=== PATIENT | male | born 1980 | race Caucasian/White ===

== ENCOUNTER 2019-08-22 01:32 | Observation (INO) ==
[2019-08-22] MEDS ORDERED: ONDANSETRON INJ 2 MG/ML 2 ML VIAL IV STA (02:01)
[2019-08-22] MEDS ORDERED: SODIUM CHLORIDE 0.9% 500 ML IV STA (02:01)
[2019-08-22 02:19] LABS: Basophils # (auto) 0.02 K/uL (0-0.2); Basophils % (auto) 0.2 %; Eosinophils # (auto) 0.04 K/uL (0-0.5); Eosinophils % (auto) 0.3 %; Hematocrit (blood only) 42.4 % (42-52); Hemoglobin 15.2 g/dL (14.0-18.0); Immature Granulocytes # (auto) 0.04 K/uL (0.00-0.02); Immature Granulocytes % (auto) 0.3 %; Lymphocytes # (auto) 2.13 K/uL (1.2-3.4); Lymphocytes % (auto) 17.3 %; Mean Corpuscular Hemoglobin 29.6 pg (25-34); Mean Corpuscular Hgb Conc 35.8 g/dL (32-36); Mean Corpuscular Volume 82.5 fL (80-100); Mean Platelet Volume 10.4 fL (7.4-10.4); Monocytes # (auto) 1.07 K/uL (0.11-0.59); Monocytes % (auto) 8.7 %; Neutrophils # (auto) 8.98 K/uL (1.4-6.5); Neutrophils % (auto) 73.2 %; Platelet Count 235 K/uL (130-400); RDW Coefficient of Variation 12.6 % (11.5-14.5); RDW Standard Deviation 37.9 fL (36.4-46.3); Red Blood Count 5.14 M/uL (4.7-6.1); White Blood Count 12.28 K/uL (4.8-10.8)
[2019-08-22] MEDS ORDERED: MoRPHine SULFATE 4 MG/ML 1 ML CARP\\VIAL IV STA (02:25)
[2019-08-22 02:27] LABS: Alanine Aminotransferase 34 U/L (12-78); Albumin Level 3.8 gm/dl (3.4-5.0); Aspartate Aminotransferase 19 U/L (15-37); BUN Creatinine Ratio 16.4 (10-20); Blood Urea Nitrogen 13 mg/dl (7-18); Calcium 9.1 mg/dl (8.5-10.1); Carbon Dioxide 27 mmol/L (21-32); Chloride 101 mmol/L (98-107); Creatinine Clr Calc Pharmacy 127.4 ml/min; Est GFR (African American) 130.9; Glucose 132 mg/dl (70-99); Lipase 93 U/L (73-393); Sodium 139 mmol/L (136-145)
[2019-08-22] MEDS ORDERED: POTASSIUM ACETATE 10 MEQ in 0.9 % SODIUM CHLORIDE 100 ML IV ONE (02:29)
[2019-08-22 02:30] LABS: Albumin Globulin Ratio 0.9 (0.9-2); Alkaline Phosphatase 101 U/L (45-117); Bilirubin,Total 0.3 mg/dl (0.2-1); Globulin 4.4 gm/dl (2.5-4.0); Total Protein 8.2 gm/dl (6.4-8.2)
[2019-08-22] MEDS ORDERED: SODIUM CHLORIDE 0.9% 1000ML 1,000 ML IV SCH (02:30)
[2019-08-22] MEDS ORDERED: POTASSIUM CHLORIDE / WTR 10 MEQ/100 ML PLCT IV ONE (02:44)
[2019-08-22 02:51] LABS: Troponin I < 0.015 ng/ml (0-0.045)
[2019-08-22 03:04] LABS: T4 Free Thyroxine 1.12 ng/dl (0.8-1.6)
[2019-08-22 03:14] LABS: Appearance Urine Clear (Clear); Bilirubin Urine Negative (Negative); Blood Urine Negative (Negative); Color Urine Yellow; Glucose Urine UA Negative (Negative); Ketones Urine 2+ (Negative); Leukocyte Esterase Urine Negative (Negative); Nitrite Urine Negative (Negative); Protein Urine Negative (Negative); Specific Gravity Urine 1.023 (1.000-1.030); Urobilinogen Urine Negative (Negative); pH Urine 5.5 (4.5-7.5)
[2019-08-22 03:23] LABS: Lyme Ab IgG w/WB Rflx Negative (Negative); Lyme Ab IgM w/WB Rflx Negative (Negative)
[2019-08-22] MEDS ORDERED: cefOXitin 1,000 MG/50 ML BAG IV STA (05:29)
--- NOTE | 2019-08-22 05:33 | Emergency Department Note ---
History of Present Illness General Chief complaint: Abdominal Pain Stated complaint: ABDOMINAL PAIN Time Seen by Provider: 08/22/19 02:05 History of Present Illness Maximum Pain Intensity: 7 This is a 39-year-old male presenting to the emergency department for evaluation of upper abdominal pain that began this evening. The patient's discomfort began shortly after eating a large meal tonight. He initially had pain that was rated a 10/10, but now it is rated a 7/10. The patient considers himself usually healthy and does not regularly follow with a doctor. He does have a past histo ry of appendectomy. He does not take medication on a regular basis. His last meal was around 10 PM. No fevers or chills. No chest pain, chest tightness, or shortness of breath. Home Medications Home Medications Medication Instructions Recorded Confirmed Type No Known Home Medications 08/22/19 08/22/19 History Allergies Allergy/AdvReac Type Severity Reaction Status Date / Time amoxicillin Allergy Rash Verified 08/22/19 14:02 Past Med/Surg History Medical History Hypokalemia No chronic diseases present Surgical History History of appendectomy Family History Other No known health problems Social History Preferred Language: Somali Communication Ability: Effective Back Filler Operator Required: No Beliefs That Will Affect Care: None Current Living Situation: Family Other Information That Helps Us Care for You: No Feels Safe at Home: Yes Safety Concerns: Feels Safe At This Time Smoking Status: Never smoker Hx Alcohol Use: No Hx Substance Use: No Review of Systems A total of 10 systems reviewed and were otherwise negative Physical Exam Vital Signs Vital Signs - 24 hr 08/22/19 01:39 08/22/19 01:43 08/22/19 02:00 Temperature 37.0 C Temperature Source Oral Sepsis Recent Fever Within 48 Hours No Sepsis New/Unexplained Change in Mental Status No Sepsis Action Taken by Nursing No Action Required Pulse Rate 52 L 52 L 55 L Pulse Rate from SpO2 Sensor 52 L 54 L Pulse Rhythm Regular Pulse Strength Normal Respiratory Rate 20 20 22 Respiratory Effort / Characteristics Non-Labored Respiratory Depth Normal Blood Pressure 138/90 138/90 124/75 Blood Pressure Mean 106 106 91 Pulse Oximetry 99 96 98 Oxygen Delivery Method Room Air Room Air Room Air 08/22/19 02:30 10/09/19 03:30 08/22/19 04:20 Temperature Temperature Source Sepsis Recent Fever Within 48 Hours Sepsis New/Unexplained Change in Mental Status Sepsis Action Taken by Nursing Pulse Rate 50 L 65 58 L Pulse Rate from SpO2 Sensor 50 L 65 59 L Pulse Rhythm Pulse Strength Respiratory Rate 14 17 21 Respiratory Effort / Characteristics Respiratory Depth Blood Pressure 136/77 128/77 125/73 Blood Pressure Mean 96 94 90 Pulse Oximetry 100 97 97 Oxygen Delivery Method Room Air Room Air 08/22/19 04:30 08/22/19 05:00 08/22/19 05:30 Temperature Temperature Source Sepsis Recent Fever Within 48 Hours Sepsis New/Unexplained Change in Mental Status Sepsis Action Taken by Nursing Pulse Rate 63 66 63 Pulse Rate from SpO2 Sensor 63 66 61 Pulse Rhythm Pulse Strength Respiratory Rate 19 19 21 Respiratory Effort / Characteristics Respiratory Depth Blood Pressure 120/78 118/70 111/67 Blood Pressure Mean 92 86 81 Pulse Oximetry 97 97 98 Oxygen Delivery Method Room Air Room Air Room Air 08/22/19 06:00 08/22/19 06:30 Temperature Temperature Source Sepsis Recent Fever Within 48 Hours Sepsis New/Unexplained Change in Mental Status Sepsis Action Taken by Nursing Pulse Rate 68 74 Pulse Rate from SpO2 Sensor 67 73 Pulse Rhythm Pulse Strength Respiratory Rate 19 15 Respiratory Effort / Characteristics Respiratory Depth Blood Pressure 118/66 122/71 Blood Pressure Mean 83 88 Pulse Oximetry 98 96 Oxygen Delivery Method Room Air Room Air VITALS: Vitals are noted on the nurse's note and reviewed by myself. Vital signs stable. GENERAL: Well-developed, well-nourished, white male who appears in mild to moderate discomfort. He is cooperative with the exam. HEART: Regular rate and rhythm without murmurs gallops or rubs. LUNGS: Clear to auscultation bilaterally without wheezes, rales or rhonchi. No retractions or accessory muscle use. ABDOMEN: Positive normal bowel sounds x 4. Soft with epigastric and right upper quadrant tenderness. The patient does guard in this area. Lesser tenderness is appreciated in the right lower quadrant. No CVA tenderness. MUSCULOSKELETAL: No muscle atrophy, erythema, or edema noted. Full range of motion in all extremities. NEURO: Patient was alert and oriented to person place and time. CN II through XII grossly intact. SKIN: The skin was without rashes, erythema, edema, or bruising. Capillary refill less than 2 seconds. Course Administered Medications Dextrose/Sodium Chloride (D5w And Nss) 1,000 mls @ 125 mls/hr IV .Q8H KENRICK Stop: 09/21/19 09:16 Last Admin: 08/23/19 00:00 Dose: 125 mls/hr Documented by: [id number] Infusion: 08/22/19 17:30 Dose: 0 mls/hr Documented by: [id number] Infusion: 08/22/19 13:52 Dose: 0 mls/hr Documented by: [id number] Infusion: 08/22/19 11:41 Dose: 125 mls/hr Documented by: [id number] Cosigned by: [id number] Infusion: 08/22/19 10:33 Dose: 0 mls/hr Documented by: [id number] Cosigned by: [id number] Admin: 08/22/19 09:43 Dose: 125 mls/hr Documented by: [id number] Ciprofloxacin (Cipro) 400 mg in 200 mls @ 100 mls/hr IV Q12H KENRICK; Protocol Stop: 09/01/19 09:59 Last Infusion: 08/22/19 23:23 Dose: 0 mls/hr Documented by: [id number] Admin: 08/22/19 21:23 Dose: 100 mls/hr Documented by: [id number] Infusion: 08/22/19 12:44 Dose: 0 mls/hr Documented by: [id number] Cosigned by: [id number] Admin: 08/22/19 10:28 Dose: 100 mls/hr Documented by: [id number] Cosigned by: [id number] Metronidazole (Flagyl) 500 mg in 100 mls @ 100 mls/hr IV Q8H K[facility]RICK Stop: 09/01/19 09:59 Last Infusion: 08/22/19 20:42 Dose: 0 mls/hr Documented by: [id number] Admin: 08/22/19 19:25 Dose: 100 mls/hr Documented by: [id number] Infusion: 08/22/19 11:37 Dose: 0 mls/hr Documented by: [id number] Admin: 08/22/19 10:29 Dose: 100 mls/hr Documented by: [id number] Cosigned by: [id number] Oxycodone/Acetaminophen (Percocet 5mg/325mg) 1 tab PO Q4H PRN PRN Reason: Pain Stop: 09/05/19 16:45 Last Admin: 08/22/19 23:55 Dose: 1 tab Documented by: [id number] Discontinued Medications Bupivacaine HCl (Marcaine 0.5% Mpf) Confirm Administered Dose 30 ml .ROUTE .STK- MED ONE Stop: 08/22/19 13:55 Last Admin: 08/22/19 15:31 Dose: 30 ml Documented by: [id number] Cefazolin Sodium (Ancef) Confirm Administered Dose 1,000 mg .ROUTE .STK-MED ONE Stop: 08/22/19 13:56 Last Admin: 08/22/19 15:30 Dose: Not Given Documented by: [id number] Heparin Sodium (Porcine) (Heparin Iv Bolus (Utility Helicopter Repairer Use Only)) Confirm Administered Dose 10,000 units .ROUTE .STK-MED ONE Stop: 08/22/19 13:55 Last Admin: 08/22/19 15:29 Dose: 5,000 units Documented by: [id number] Sodium Chloride (Nss) 500 mls @ 999 mls/hr IV .Q31M STA Stop: 08/22/19 02:31 Last Infusion: 08/22/19 02:36 Dose: 0 mls/hr Documented by: [id number] Admin: 08/22/19 02:05 Dose: 999 mls/hr Documented by: [id number] Sodium Chloride (Nss 1000ml) 1,000 mls @ 999 mls/hr IV .Q1H1M K[facility]RICK Stop: 08/22/19 03:30 Last Infusion: 08/22/19 04:03 Dose: 0 mls/hr Documented by: [id number] Admin: 08/22/19 02:57 Dose: 999 mls/hr Documented by: [id number] Potassium Acetate 10 meq/ (Sodium Chloride) 105 mls @ 105 mls/hr IV Q1H ONE Stop: 08/22/19 03:28 Last Admin: 08/22/19 03:04 Dose: Not Given Documented by: [id number] Potassium Chloride (K Rich / Wtr) 10 meq in 100 mls @ 100 mls/hr IV ONE ONE Stop: 08/22/19 03:43 Last Infusion: 08/22/19 04:03 Dose: 0 mls/hr Documented by: [id number] Admin: 08/22/19 02:56 Dose: 100 mls/hr Documented by: [id number] Cefoxitin Sodium (Mefoxin) 1,000 mg in 50 mls @ 100 mls/hr IV NOW STA Stop: 08/22/19 05:58 Last Infusion: 08/22/19 06:11 Dose: 0 mls/hr Documented by: [id number] Admin: 08/22/19 05:40 Dose: 100 mls/hr Documented by: [id number] Lactated Ringer's (Lr) 1,000 mls @ 15 mls/hr IV .Q24H [facility] Stop: 09/21/19 14:44 Last Admin: 08/22/19 17:00 Dose: Not Given Documented by: [id number] Iothalamate Meglumine (Conray 60%) Confirm Administered Dose 50 ml .ROUTE .STK- MED ONE Stop: 08/22/19 13:55 Last Admin: 08/22/19 15:28 Dose: Not Given Documented by: [id number] Morphine Sulfate (Morphine Sulfate) 4 mg IV NOW STA Stop: 08/22/19 02:26 Last Admin: 08/22/19 02:56 Dose: 4 mg Documented by: [id number] Ondansetron HCl (Zofran) 4 mg IV NOW STA Stop: 08/22/19 02:02 Last Admin: 08/22/19 02:05 Dose: 4 mg Documented by: [id number] Potassium Chloride (Klor-Con M20) 60 meq PO NOW STA Stop: 08/22/19 06:46 Last Admin: 08/22/19 07:07 Dose: 60 meq Documented by: [id number] Medical Decision Making Differential Diagnosis Differential diagnosis: Etiologies such as biliary colic, cholecystitis, hepatitis, pancreatitis, cardiac disease, pancreatitis, gastritis, peptic ulcer disease, appendicitis, cystitis, diverticulitis, mesenteric ischemia, inflammatory bowel disease, ileus, bowel obstruction, testicular/adnexal torsion, aortic pathology, shingles, as well as others were considered Laboratory Data Result diagrams: 08/22/19 01:40 08/22/19 01:40 Lab Results 08/22/19 08/22/19 08/22/19 Range/Units 01:40 01:40 01:40 WBC 12.28 H (4.8-10.8) K/uL RBC 5.14 (4.7-6.1) M/uL Hgb 15.2 (14.0-18.0) g/dL Hct 42.4 (42-52) % MCV 82.5 (80-100) fL MCH 29.6 (25-34) pg MCHC 35.8 (32-36) g/dL RDW Std Deviation 37.9 (36.4-46.3) fL RDW Coeff of Ketty 12.6 (11.5-14.5) % Plt Count 235 (130-400) K/uL MPV 10.4 (7.4-10.4) fL Immature Gran % (Auto) 0.3 % Neut % (Auto) 73.2 % Lymph % (Auto) 17.3 % [place] % (Auto) 8.7 % Eos % (Auto) 0.3 % Baso % (Auto) 0.2 % Immature Gran # (Auto) 0.04 H (0.00-0.02) K/uL Neut # (Auto) 8.98 H (1.4-6.5) K/uL Lymph # (Auto) 2.13 (1.2-3.4) K/uL [place] # (Auto) 1.07 H (0.11-0.59) K/uL Eos # (Auto) 0.04 (0-0.5) K/uL Baso # (Auto) 0.02 (0-0.2) K/uL Sodium 139 (136-145) mmol/L Potassium 3.0 L (3.5-5.1) mmol/L Chloride 101 (98-107) mmol/L Carbon Dioxide 27 (21-32) mmol/L Anion Gap 11.0 (3-11) BUN 13 (7-18) mg/dl Creatinine 0.82 (0.6-1.4) mg/dl Est Cr Clr Drug Dosing 127.4 ml/min Est GFR ( Amer) 130.9 Est GFR (Non-Af Amer) 113.0 BUN/Creatinine Ratio 16.4 (10-20) Glucose 132 H (70-99) mg/dl Calcium 9.1 (8.5-10.1) mg/dl Total Bilirubin 0.3 (0.2-1) mg/dl AST 19 (15-37) U/L ALT 34 (12-78) U/L Alkaline Phosphatase 101 (45-117) U/L Troponin I < 0.015 (0-0.045) ng/ml Total Protein 8.2 (6.4-8.2) gm/dl Albumin 3.8 (3.4-5.0) gm/dl Globulin 4.4 H (2.5-4.0) gm/dl Albumin/Globulin Ratio 0.9 (0.9-2) Lipase 93 (73-393) U/L TSH 0.240 L (0.300-4.500) uIu/ml Free T4 1.12 (0.8-1.6) ng/dl Urine Color Urine Appearance (Clear) Urine pH (4.5-7.5) Ur Specific [place] (1.000-1.030) Urine Protein (Negative) Urine Glucose (UA) (Negative) Urine Ketones (Negative) Urine Blood (Negative) Urine Nitrite (Negative) Urine Bilirubin (Negative) Urine Urobilinogen (Negative) Ur Leukocyte Esterase (Negative) Lyme Disease IgG Ab Negative (Negative) Lyme Disease IgM Ab Negative (Negative) 08/22/19 Range/Units 03:00 WBC (4.8-10.8) K/uL RBC (4.7-6.1) M/uL Hgb (14.0-18.0) g/dL Hct (42-52) % MCV (80-100) fL MCH (25-34) pg MCHC (32-36) g/dL RDW Std Deviation (36.4-46.3) fL RDW Coeff of Ketty (11.5-14.5) % Plt Count (130-400) K/uL MPV (7.4-10.4) fL Immature Gran % (Auto) % Neut % (Auto) % Lymph % (Auto) % [place] % (Auto) % Eos % (Auto) % Baso % (Auto) % Immature Gran # (Auto) (0.00-0.02) K/uL Neut # (Auto) (1.4-6.5) K/uL Lymph # (Auto) (1.2-3.4) K/uL [place] # (Auto) (0.11-0.59) K/uL Eos # (Auto) (0-0.5) K/uL Baso # (Auto) (0-0.2) K/uL Sodium (136-145) mmol/L Potassium (3.5-5.1) mmol/L Chloride (98-107) mmol/L Carbon Dioxide (21-32) mmol/L Anion Gap (3-11) BUN (7-18) mg/dl Creatinine (0.6-1.4) mg/dl Est Cr Clr Drug Dosing ml/min Est GFR ( Amer) Est GFR (Non-Af Amer) BUN/Creatinine Ratio (10-20) Glucose (70-99) mg/dl Calcium (8.5-10.1) mg/dl Total Bilirubin (0.2-1) mg/dl AST (15-37) U/L ALT (12-78) U/L Alkaline Phosphatase (45-117) U/L Troponin I (0-0.045) ng/ml Total Protein (6.4-8.2) gm/dl Albumin (3.4-5.0) gm/dl Globulin (2.5-4.0) gm/dl Albumin/Globulin Ratio (0.9-2) Lipase (73-393) U/L TSH (0.300-4.500) uIu/ml Free T4 (0.8-1.6) ng/dl Urine Color Yellow Urine Appearance Clear (Clear) Urine pH 5.5 (4.5-7.5) Ur Specific [place] 1.023 (1.000-1.030) Urine Protein Negative (Negative) Urine Glucose (UA) Negative (Negative) Urine Ketones 2+ H (Negative) Urine Blood Negative (Negative) Urine Nitrite Negative (Negative) Urine Bilirubin Negative (Negative) Urine Urobilinogen Negative (Negative) Ur Leukocyte Esterase Negative (Negative) Lyme Disease IgG Ab (Negative) Lyme Disease IgM Ab (Negative) Imaging Data Radiologist's Impression: Preliminary Findings Only See Final Report For Complete Findings US RUQ: There is an echogenic nonmobile gallstone noted near the neck of the gallbladder. In addition, the gallbladder wall is prominent, measuring 8 mm in diameter with pericholecystic fluid and a reported positive sonographic Tesfaye sign. Findings are suspicious for acute cholecystitis. Please correlate clinically. No biliary dilatation with the common bile duct measuring 4 mm. The visualized pancreas, portal vein and right kidney are unremarkable. The liver is borderline in size measuring 18 cm in length. No focal intrahepatic biliary dilatation noted. ECG Data Additional Comments: EKG#1 Sinus bradycardia at 50 bpm Possible voltage criteria for LVH No acute ST elevation No previous EKG for comparison EKG#2 Sinus bradycardia at 53 bpm Possible voltage criteria for LVH No acute ST elevation No significant change from previous MDM Narrative Physical exam and history were performed. Nursing notes, EMR, and Medication List were personally reviewed. Patient appears to have upper abdominal pain bringing him to the ER tonight. The patient does appear uncomfortable on exam. IV access was established and labs were obtained. Plain chest x-ray and KUB were performed and did not show obvious acute process. Because of the location of his symptoms and onset after eating food I did elect to next perform ultrasound of the right upper quadrant. The patient was given IV morphine and IV Zofran for comfort. He was kept n.p.o. The patient's blood work is as above and was reviewed. He does have a mildly elevated white blood cell count of 12,000. His potassium was slightly low at 3.0 and this was repleted through his IV. He does not have a significant anemia or additional electrolyte imbalance. Lipase and transaminases are not diagnostic. Troponin x1 is negative. The patient's ultrasound was reviewed by myself and radiology and is as above. Ultrasound is highly concerning for acute cholecystitis, which would correlate with his discomfort. I did discuss the case with the on-call general surgeon, Dr. Matute, and we will start the patient on Mefoxin here in the department. The case was then discussed with the on-call hospitalist, Dr. Mejia, who agreed to evaluate the patient here in the department for further management. The patient will likely go to the OR later today. Please see the hospitalist and manuel rgical team notes for further patient course, plan, and disposition. The chart was completed utilizing [employer] Speech Voice Recognition Software. Grammatical errors, random word insertions, pronoun errors, and incomplete sentences are an occasional consequence of this system due to software limita tions, ambient noise, and hardware issues. Any formal questions or concerns about the content, text, or information contained within the body of this dictation should be directly addressed to the provider for clarification. . Impression & Plan Acute cholecystitis, Abdominal pain, Hypokalemia Discharge Plan Visit Data *Final* Discharge Date/Time: 08/22/19 08:45 Chief Complaint: Abdominal Pain Stated Complaint: ABDOMINAL PAIN ED Provider: Iva Shoemaker ED Midlevel Provider: Aaron Carr Discharge Problem: Acute cholecystitis, Abdominal pain, Hypokalemia Patient Disposition: Admitted As Inpatient Discharge Instructions Interventions: ED Discharge Assessment Last Done: 08/22/19 08:45
--- NOTE | 2019-08-22 06:41 | XRay Report ---
XR chest 1V portable CLINICAL HISTORY: Pain, radiating to the abdomen. COMPARISON STUDY: No previous studies for comparison. FINDINGS: The cardiac and mediastinal contours are normal. There is no evidence of focal pulmonary co nsolidation. There is no evidence of failure. No pleural effusions are visualized.[There is no free i ntraperitoneal air. IMPRESSION: No active disease in the chest. Electronically signed by: Jd Garza M.D. 08/22/2019 6:40 AM
--- NOTE | 2019-08-22 06:44 | Ultrasound Report ---
BILIARY ULTRASOUND CLINICAL HISTORY: Right upper quadrant abdominal pain COMPARISON STUDY: No previous studies for comparison. FINDINGS: The pancreas appears normal as visualized. The liver appears sonographically normal. There are no focal hepatic masses. There is no ductal dilatation. The common bile duct measures 4 mm. There is a nonshadowing calculus in the region of the gallbladder neck. There is gallbladder wall edema. T he technologist reports a positive sonographic Tesfaye sign. The findings are suspicious for acute cho lecystitis. There is no evidence of right-sided hydronephrosis. There is borderline increase in right renal cortical echogenicity IMPRESSION: 1. Cholelithiasis, gallbladder wall edema, and reported positive sonographic Tesfaye sign. The finding s are suspicious for acute cholecystitis. Please correlate clinically. Electronically signed by: Jd Garza M.D. 08/22/2019 6:43 AM
[2019-08-22] MEDS ORDERED: POTASSIUM CHLORIDE 20 MEQ TABCR PO STA (06:45)
--- NOTE | 2019-08-22 06:56 | XRay Report ---
XR KUB/Abdomen 1 view CLINICAL HISTORY: epigastric abd pain COMPARISON STUDY: No previous studies for comparison. FINDINGS: There is no pathologic bowel dilatation. There is no conventional radiographic evidence of organomegaly. No urinary tract calculi are visualized. IMPRESSION: Nonobstructive bowel gas pattern. Electronically signed by: Jd Garza M.D. 08/22/2019 6:55 AM
--- NOTE | 2019-08-22 07:37 | Surgery Consultation ---
Date of Consultation August 22, 2019 Assessment & Plan (1) Acute cholecystitis: This patient has right upper quadrant pain and tenderness with an ultrasound showing a stone in the neck of the gallbladder and pericholecystic fluid consistent with acute cholecystitis. I recommended a laparoscopic cholecystectomy. I explained the possible need to convert to an open procedure. I explained the possible complications associated with these procedures. He wishes to go ahead with surgery. He has signed a consent form. History of Present Illness Reason for Consultation: Acute cholecystitis Requesting Physician: Dr. Mejia History of Present Illness This is a 39-year-old gentleman who presented to the emergency room with a complaint of right upper quadrant pain that began last night at 930. Over the last week he had had a few episodes of discomfort in the same area but it was not nearly as severe and they were self-limited. They always follows eating. He does not have nausea with it. He has not vomited. He has had no fever or chills. His bowels have been moving regularly without melena or hematochezia. He denies diarrhea and constipation. He denies dysuria and hematuria. He underwent an ultrasound of the right upper quadrant that demonstrated cholelithiasis with pericholecystic fluid and edema in the wall consistent with acute cholecystitis. There is also a calculus in the neck of the gallbladder. Allergies Allergy/AdvReac Type Severity Reaction Status Date / Time No Known Allergies Allergy Mild Unverified 08/22/19 02:06 Home Medications Home Medications Medication Instructions Recorded Confirmed Type No Known Home Medications 08/22/19 08/22/19 History Patient History Medical History No chronic diseases present Surgical History History of appendectomy Social History Preferred Language: Greenlandic Feels Safe at Home: Yes Smoking Status: Never smoker Review of Systems Review of Systems: All systems reviewed & are unremarkable except as noted in HPI & below Physical Exam Constitutional: no acute distress Neck: trachea midline Respiratory: normal respiratory effort, lungs clear to auscultation Cardiovascular: Rate/Rhythm: regular rate and regular rhythm Gastrointestinal (Abdomen): Inspection/Auscultation: normal bowel sounds; abdomen not distended Percussion/Palpation: + abdomen tender (Right upper quadrant to mild palpation) and abdomen soft; abdomen not rigid Skin: no rashes, warm and dry Lymphatic: no cervical lymphadenopathy Results & Data Vital Signs (Past 12 Hours) Vital Signs Temp Pulse Resp BP Pulse Ox 08/22/19 06:30 74 15 122/71 96 08/22/19 06:00 68 19 118/66 98 08/22/19 05:30 63 21 111/67 98 08/22/19 05:00 66 19 118/70 97 08/22/19 04:30 63 19 120/78 97 08/22/19 04:20 58 L 21 125/73 97 08/22/19 03:30 65 17 128/77 97 08/22/19 02:30 50 L 14 136/77 100 08/22/19 02:00 55 L 22 124/75 98 08/22/19 01:43 37.0 C 52 L 20 138/90 96 08/22/19 01:39 52 L 20 138/90 99 Laboratory Results 08/22/19 08/22/19 08/22/19 Range/Units 03:00 01:40 01:40 WBC (4.8-10.8) K/uL RBC (4.7-6.1) M/uL Hgb (14.0-18.0) g/dL Hct (42-52) % MCV (80-100) fL MCH (25-34) pg MCHC (32-36) g/dL RDW Std Deviation (36.4-46.3) fL RDW Coeff of Ketty (11.5-14.5) % Plt Count (130-400) K/uL MPV (7.4-10.4) fL Immature Gran % (Auto) % Neut % (Auto) % Lymph % (Auto) % [place] % (Auto) % Eos % (Auto) % Baso % (Auto) % Immature Gran # (Auto) (0.00-0.02) K/uL Neut # (Auto) (1.4-6.5) K/uL Lymph # (Auto) (1.2-3.4) K/uL [place] # (Auto) (0.11-0.59) K/uL Eos # (Auto) (0-0.5) K/uL Baso # (Auto) (0-0.2) K/uL Sodium 139 (136-145) mmol/L Potassium 3.0 L (3.5-5.1) mmol/L Chloride 101 (98-107) mmol/L Carbon Dioxide 27 (21-32) mmol/L Anion Gap 11.0 (3-11) BUN 13 (7-18) mg/dl Creatinine 0.82 (0.6-1.4) mg/dl Est Cr Clr Drug Dosing 127.4 ml/min Est GFR ( Amer) 130.9 Est GFR (Non-Af Amer) 113.0 BUN/Creatinine Ratio 16.4 (10-20) Glucose 132 H (70-99) mg/dl Calcium 9.1 (8.5-10.1) mg/dl Total Bilirubin 0.3 (0.2-1) mg/dl AST 19 (15-37) U/L ALT 34 (12-78) U/L Alkaline Phosphatase 101 (45-117) U/L Troponin I < 0.015 (0-0.045) ng/ml Total Protein 8.2 (6.4-8.2) gm/dl Albumin 3.8 (3.4-5.0) gm/dl Globulin 4.4 H (2.5-4.0) gm/dl Albumin/Globulin Ratio 0.9 (0.9-2) Lipase 93 (73-393) U/L TSH 0.240 L (0.300-4.500) uIu/ml Free T4 1.12 (0.8-1.6) ng/dl Urine Color Yellow Urine Appearance Clear (Clear) Urine pH 5.5 (4.5-7.5) Ur Specific [place] 1.023 (1.000-1.030) Urine Protein Negative (Negative) Urine Glucose (UA) Negative (Negative) Urine Ketones 2+ H (Negative) Urine Blood Negative (Negative) Urine Nitrite Negative (Negative) Urine Bilirubin Negative (Negative) Urine Urobilinogen Negative (Negative) Ur Leukocyte Esterase Negative (Negative) Lyme Disease IgG Ab Negative (Negative) Lyme Disease IgM Ab Negative (Negative) 08/22/19 Range/Units 01:40 WBC 12.28 H (4.8-10.8) K/uL RBC 5.14 (4.7-6.1) M/uL Hgb 15.2 (14.0-18.0) g/dL Hct 42.4 (42-52) % MCV 82.5 (80-100) fL MCH 29.6 (25-34) pg MCHC 35.8 (32-36) g/dL RDW Std Deviation 37.9 (36.4-46.3) fL RDW Coeff of Ketty 12.6 (11.5-14.5) % Plt Count 235 (130-400) K/uL MPV 10.4 (7.4-10.4) fL Immature Gran % (Auto) 0.3 % Neut % (Auto) 73.2 % Lymph % (Auto) 17.3 % [place] % (Auto) 8.7 % Eos % (Auto) 0.3 % Baso % (Auto) 0.2 % Immature Gran # (Auto) 0.04 H (0.00-0.02) K/uL Neut # (Auto) 8.98 H (1.4-6.5) K/uL Lymph # (Auto) 2.13 (1.2-3.4) K/uL [place] # (Auto) 1.07 H (0.11-0.59) K/uL Eos # (Auto) 0.04 (0-0.5) K/uL Baso # (Auto) 0.02 (0-0.2) K/uL Sodium (136-145) mmol/L Potassium (3.5-5.1) mmol/L Chloride (98-107) mmol/L Carbon Dioxide (21-32) mmol/L Anion Gap (3-11) BUN (7-18) mg/dl Creatinine (0.6-1.4) mg/dl Est Cr Clr Drug Dosing ml/min Est GFR ( Amer) Est GFR (Non-Af Amer) BUN/Creatinine Ratio (10-20) Glucose (70-99) mg/dl Calcium (8.5-10.1) mg/dl Total Bilirubin (0.2-1) mg/dl AST (15-37) U/L ALT (12-78) U/L Alkaline Phosphatase (45-117) U/L Troponin I (0-0.045) ng/ml Total Protein (6.4-8.2) gm/dl Albumin (3.4-5.0) gm/dl Globulin (2.5-4.0) gm/dl Albumin/Globulin Ratio (0.9-2) Lipase (73-393) U/L TSH (0.300-4.500) uIu/ml Free T4 (0.8-1.6) ng/dl Urine Color Urine Appearance (Clear) Urine pH (4.5-7.5) Ur Specific [place] (1.000-1.030) Urine Protein (Negative) Urine Glucose (UA) (Negative) Urine Ketones (Negative) Urine Blood (Negative) Urine Nitrite (Negative) Urine Bilirubin (Negative) Urine Urobilinogen (Negative) Ur Leukocyte Esterase (Negative) Lyme Disease IgG Ab (Negative) Lyme Disease IgM Ab (Negative) Diagnostic Findings BILIARY ULTRASOUND CLINICAL HISTORY: Right upper quadrant abdominal pain COMPARISON STUDY: No previous studies for comparison. FINDINGS: The pancreas appears normal as visualized. The liver appears sonographically normal. There are no focal hepatic masses. There is no ductal dilatation. The common bile duct measures 4 mm. There is a nonshadowing calculus in the region of the gallbladder neck. There is gallbladder wall edema. The technologist reports a positive sonographic Tesfaye sign. The findings are suspicious for acute cholecystitis. There is no evidence of right-sided hydronephrosis. There is borderline increase in right renal cortical echogenicity IMPRESSION: 1. Cholelithiasis, gallbladder wall edema, and reported positive sonographic Tesfaye sign. The findings are suspicious for acute cholecystitis. Please correlate clinically.
[2019-08-22] MEDS ORDERED: ONDANSETRON INJ 2 MG/ML 2 ML VIAL IV PRN ×2 (09:17→14:23)
[2019-08-22] MEDS ORDERED: ACETAMINOPHEN 325 MG TAB PO PRN (09:17)
[2019-08-22] MEDS ORDERED: HYDROmorphone INJ 0.5 MG/0.5 ML SYR IV PRN (09:17)
--- NOTE | 2019-08-22 09:29 | History and Physical Report ---
DATE OF ADMISSION: 08/22/2019 CHIEF COMPLAINT: Abdominal pain. HISTORY OF PRESENT ILLNESS: This 39-year-old male with no significant past medical history, not on any medications, came in with severe abdominal pain started last night at 10 o'clock after eating a heavy meal. Pain is located in the right upper quadrant pain, very severe in nature. Has some nausea, no vomiting, no diarrhea or constipation. In the ER, imaging studies showed cholecystitis and received antibiotics, fluids and pain medication. Surgery was notified by ER. Currently, pain is under control. Denies any headache, no blurred vision, no sore throat, no earaches, no shortness of breath, no chest pain, no dysphagia, abdominal pain improved. Normal bowel and bladder movements. No swelling in the legs, no rash. Otherwise, active. ALLERGIES: No known drug allergies. PAST MEDICAL HISTORY: None. PAST SURGICAL HISTORY: Appendectomy. MEDICATIONS: None. FAMILY HISTORY: None as per patient. SOCIAL HISTORY: No smoking, no alcohol. REVIEW OF SYMPTOMS: As per HPI. Rest of review of systems negative. PHYSICAL EXAMINATION: GENERAL: The patient is of moderate build, not in acute distress. VITAL SIGNS: Temperature 37, pulse 74, respiratory rate 15, blood pressure 122/70, oxygen 96% room air. HEENT: No pallor, no icterus. Pupils equal, round, reactive to light. NECK: Supple. CARDIOVASCULAR: S1, S2, regular rate and rhythm, no murmur, no gallop. RESPIRATORY SYSTEM: Normal AP diameter. No accessory muscle use. No wheezing, no crackles. ABDOMEN: Soft, bowel sounds present. Mild right upper quadrant tenderness present, no guarding, no rigidity. No distention. CENTRAL NERVOUS SYSTEM: Cranial nerves II-XII grossly nonfocal. EXTREMITIES: No edema, no erythema. LABORATORY DATA: WBC 12.2, hemoglobin 15.2, hematocrit 42.4, platelets 235. Sodium 139, potassium 3, chloride 101, bicarbonate 27, BUN 13, creatinine 0.8, serum glucose 132, calcium 9.1, total bilirubin 0.3, AST 19, ALT 34, alkaline phosphatase is 101. Troponin I less than 0.015. TSH 0.26, free T4 1.12. Urinalysis negative. Chest x-ray, no active disease in the chest, PE, unofficial report unremarkable. Gallbladder ultrasound, cholelithiasis, gallbladder wall edema and reported positive sonographic Tesfaye sign. These findings are suspicious for acute cholecystitis. ASSESSMENT AND PLAN: This 39-year-old male presents with abdominal pain and found to have gallstones and cholecystitis. 1. Abdominal pain . mild elevation of white count 12, and gallbladder ultrasound showed cholelithiasis and gallbladder edema and suspicious for acute cholecystitis. Surgery was notified in the ER. We will keep him n.p.o., IV Cipro, IV Flagyl, IV Dilaudid p.r.n. Await surgery evaluation. 2. Hypokalemia, will replace. 3. Deep venous thrombosis prophylaxis, SCDs. DISPOSITION: Observation in medical floor. Expect discharge home and follow with the family doctor. Level 1 full code. MTDD
[2019-08-22] MEDS: D5W AND NSS 1,000 ML IV SCH (09:43)
[2019-08-22] MEDS: CIPROFLOXACIN 400 MG/200 ML BAG IV SCH ×2 (10:28→21:23)
[2019-08-22] MEDS: metroNIDAZOLE 500 MG/100 ML BAG IV SCH ×2 (10:29→19:25)
[2019-08-22] MEDS ORDERED: HEPARIN (PORCINE) 1000 UNIT/ML 10 ML (CATH LAB USE ONLY) ONE (13:54)
[2019-08-22] MEDS ORDERED: CONRAY 60% 50 ML VIAL ONE (13:54)
[2019-08-22] MEDS ORDERED: BUPIVACAINE 0.5 % 5 MG/1 ML MPF 30ML VIAL ONE (13:54)
[2019-08-22] MEDS ORDERED: CEFAZOLIN 250 MG/ML 1 GM VIAL ONE (13:55)
[2019-08-22] MEDS ORDERED: MIDAZOLAM HCL 1 MG/ML 2ML VIAL ONE (13:57)
[2019-08-22] MEDS ORDERED: fentaNYL citrate 100 MCG/2 ML VIAL ONE ×2 (13:57→15:35)
[2019-08-22] MEDS ORDERED: ePHEDrine sulfate 50 MG/ML AMP IV PRN (14:23)
[2019-08-22] MEDS ORDERED: HYDROmorphone INJ 1 MG/ML SYRINGE IV PRN (14:23)
[2019-08-22] MEDS ORDERED: PHENYLEPHRINE 100MCG/ML 5ML SYR IV PRN (14:23)
[2019-08-22] MEDS ORDERED: fentaNYL citrate 100 MCG/2 ML VIAL IV PRN (14:23)
[2019-08-22] MEDS ORDERED: LABETALOL HCL IV 5 MG/ML 20ML IV PRN (14:23)
[2019-08-22] MEDS ORDERED: ATROPINE SULFATE 0.1 MG/ML 10ML SYR IV PRN (14:23)
[2019-08-22] MEDS ORDERED: MEPERIDINE HCL 25 MG/ML CARP IV PRN (14:23)
--- NOTE | 2019-08-22 14:26 | Anesthesiology Consultation ---
Date of Service August 22, 2019 Assessment & Plan (1) Encounter for pre-operative examination: Chart Review Chart Review: Acceptable Risk for Surgery and Patient NOT seen in Pre Admission Testing Consults Requested none History Surgery Operation Date: 08/22/19 11:55 Proposed Procedures p Laparoscopic Cholecystectomy - Chacorta Matute MD Height/Weight Height: 5 ft 10 in Weight: 82.8 kg Allergies Allergy/AdvReac Type Severity Reaction Status Date / Time amoxicillin Allergy Rash Verified 08/22/19 14:02 Medications Home Medications Medication Instructions Recorded Confirmed Last Taken No Known Home Medications 08/22/19 08/22/19 Unknown Active Medications Generic Name Dose Route Start Last Admin Trade Name Freq PRN Reason Stop Dose Admin Dextrose/Sodium Chloride 1,000 mls @ 125 mls/hr 08/22/19 09:17 08/22/19 13:52 D5w And Nss IV 09/21/19 09:16 0 mls/hr .Q8H [facility] Infusion Ciprofloxacin 400 mg in 200 mls @ 100 mls/hr 08/22/19 10:00 08/22/19 12:44 Cipro IV 09/01/19 09:59 Infused Q12H [facility] Infusion Protocol Metronidazole 500 mg in 100 mls @ 100 mls/hr 08/22/19 10:00 08/22/19 11:37 Flagyl IV 09/01/19 09:59 Infused Q8H [facility] Infusion NPO Date Last Intake of Fluids: 08/21/19 Time Last Intake of Fluids: 22:00 Last Intake of Fluids Comment: Sips with med Date Last Intake of Solids: 08/21/19 Time Last Intake of Solids: 17:00 Past Medical History Medical History Hypokalemia No chronic diseases present Past Family History Family History Other No known health problems Past Surgical History Surgical History History of appendectomy Social History Smoking Status: Never smoker Hx Alcohol Use: No Hx Substance Use: No Physical Exam Vital Signs Last Vital Signs Temp 37.0 C 08/22/19 14:03 Pulse 65 08/22/19 14:03 Resp 18 08/22/19 14:03 BP 134/80 08/22/19 14:03 Pulse Ox 97 08/22/19 14:03 Testing Laboratory Results 08/22/19 01:40 08/22/19 01:40 Urine Color Yellow 08/22/19 03:00 Urine Appearance Clear (Clear) 08/22/19 03:00 Urine pH 5.5 (4.5-7.5) 08/22/19 03:00 Ur Specific [place] 1.023 (1.000-1.030) 08/22/19 03:00 Urine Protein Negative (Negative) 08/22/19 03:00 Urine Glucose (UA) Negative (Negative) 08/22/19 03:00 Urine Ketones 2+ (Negative) H 08/22/19 03:00 Urine Nitrite Negative (Negative) 08/22/19 03:00 Ur Leukocyte Esterase Negative (Negative) 08/22/19 03:00
[2019-08-22] MEDS ORDERED: LACTATED RINGER'S 1,000 ML IV SCH (14:45)
[2019-08-22 14:57] LABS: iSTAT Creatinine 0.7 mg/dl (0.6-1.3); iSTAT Ionized Calcium 1.19 mmol/l (1.12-1.32); iSTAT Potassium 3.9 mEq/L (3.3-5.0)
[2019-08-22] MEDS ORDERED: NEOSTIGMINE METHYLSULFATE 5 MG/5 ML SYR ONE (15:00)
[2019-08-22] MEDS ORDERED: ONDANSETRON INJ 2 MG/ML 2 ML VIAL ONE (15:00)
[2019-08-22] MEDS ORDERED: PROPOFOL IV EMULSION 10 MG/ML 20 ML VIAL IV ONE (15:00)
[2019-08-22] MEDS ORDERED: LIDOCAINE HCL 2% 2 ML VIAL/AMP(20MG/ML) INFIL ONE (15:00)
[2019-08-22] MEDS ORDERED: GLYCOPYRROLATE 0.2 MG/ML VIAL ONE (15:00)
[2019-08-22] MEDS ORDERED: DEXAMETHASONE SOD INJ 4 MG/ML VIAL ONE (15:00)
[2019-08-22] MEDS ORDERED: ROCURONIUM BROMIDE 10 MG/ML 5 ML VIAL ONE (15:00)
--- NOTE | 2019-08-22 15:35 | Post Operative Brief Note ---
Immediate Post Op Note v1 Date of Surgery August 22, 2019 Pre & Post Diagnosis Operation Date: 08/22/19 11:55 Pre-Op Diagnosis: Acute cholecystitis Post-Op Diagnosis: Acute cholecystitis Procedure Operation Date: 08/22/19 11:55 Actual Procedures p Laparoscopic Cholecystectomy(Not Applicable) - Chacorta Matute MD Surgeon Chacorta Matute MD Blow Moulding Machine Operator Reta Mendoza PA-C Estimated Blood Loss 5 Findings Consistent with Post-Op Diagnosis Specimens Gallbladder and contents Anesthesia Type General Complications none
--- NOTE | 2019-08-22 16:20 | Anesthesiology Progress Note ---
Date of Service August 22, 2019 Anesthesia Post Procedure Vital Signs Vital Signs: Temp Pulse Pulse Pulse Resp BP BP 08/22/19 16:10 62 16 122/75 08/22/19 16:00 67 14 124/76 08/22/19 15:50 36.8 C 72 14 127/75 08/22/19 14:03 37.0 C 65 18 134/80 08/22/19 09:00 37.4 C 71 20 130/76 08/22/19 08:30 67 19 117/70 08/22/19 08:00 63 19 130/79 08/22/19 07:30 67 22 131/74 08/22/19 07:00 68 17 115/69 08/22/19 06:30 74 15 122/71 08/22/19 06:00 68 19 118/66 08/22/19 05:30 63 21 111/67 08/22/19 05:00 66 19 118/70 08/22/19 04:30 63 19 120/78 08/22/19 04:20 58 L 21 125/73 08/22/19 03:30 65 17 128/77 08/22/19 02:30 50 L 14 136/77 08/22/19 02:00 55 L 22 124/75 08/22/19 01:43 37.0 C 52 L 20 138/90 08/22/19 01:39 52 L 20 138/90 Pulse Ox 08/22/19 16:10 100 08/22/19 16:00 100 08/22/19 15:50 98 08/22/19 14:03 97 08/22/19 09:00 97 08/22/19 08:30 97 08/22/19 08:00 08/22/19 07:30 99 08/22/19 07:00 97 08/22/19 06:30 96 08/22/19 06:00 98 08/22/19 05:30 98 08/22/19 05:00 97 08/22/19 04:30 97 08/22/19 04:20 97 08/22/19 03:30 97 08/22/19 02:30 100 08/22/19 02:00 98 08/22/19 01:43 96 08/22/19 01:39 99 Pain Intensity Abdomen: Pain Intensity: 3 Transfer of Care Handoff Completed per policy Notes Mental Status: alert / awake / arousable Patient Amnestic to Procedure: Yes Nausea / Vomiting: adequately controlled Pain: adequately controlled Airway Patency, RR, SpO2: stable & adequate BP & HR: stable & adequate Hydration State: stable & adequate Anesthetic Complications: no major complications apparent and Pt Satisfied with anesthetic care
[2019-08-22] MEDS ORDERED: MoRPHine SULFATE 4 MG/ML 1 ML CARP\\VIAL IV PRN (16:46)
--- NOTE | 2019-08-22 23:40 | Operative Report ---
DATE OF OPERATION: 08/22/2019 PREOPERATIVE DIAGNOSIS: Acute cholecystitis. POSTOPERATIVE DIAGNOSIS: Acute cholecystitis. PROCEDURE: Laparoscopic cholecystectomy. SURGEON: Chacorta Matute MD CIVIL ENGINEER IN TRAINING: Reta Mendoza PA-C FINDINGS: The gallbladder was moderately dilated. The cystic duct was narrow. There was a lot of edema in the tissue surrounding the cystic duct and cystic artery. There was some increased adhesion of the gallbladder from the body up towards the fundus to the liver. The liver was of normal size and contour. The visible bowel appeared normal. TECHNIQUE: The patient was given a general anesthetic and the area was prepped and draped in the usual sterile fashion. Transverse incision was made below the umbilicus, carried down through the subcutaneous tissue to the fascia which was grasped with 2 Pari clamps and incised between. The peritoneum was identified, incised, and the introducer was placed bluntly. The abdomen was then insufflated to a pressure of 15 mmHg with carbon dioxide. The upper midline, midclavicular and anterior axillary introducers were placed under direct vision through small skin incision. Traction was placed on the gallbladder. There were some flimsy adhesions of the omentum and of the duodenum to the gallbladder wall over the infundibulum. These were taken down without using cautery. This exposed the infundibulum and neck of the gallbladder. The peritoneum was then opened and peeled towards the common bile duct and the gallbladder was peeled away from the liver on the lateral side allowing for better mobility. I was then able to place lateral traction and opened the triangle of Calot and divide the liver attachments of the gallbladder infundibulum and neck as well as the lower portion of the body of the gallbladder. There was some thickened connective tissue in the lymphatics in the triangle of [place]ot and these were taken down, which exposed the cystic duct. I then was able to establish the lateral wall of the cystic duct and divide some connective tissue on that side and then dissect behind the infundibulum there to elevate away from the liver. Similar dissection was carried medially and then I was able to establish a plane on the posterior side, isolating in 360 degrees and allowing me to confidently identify the cystic duct gallbladder junction. I then further dissected connective tissue and lymphatics from the triangle of [place]ot and isolated the cystic artery. There was a good window created. Two clips were placed on the proximal cystic duct, one near the junction with the gallbladder and it was divided. Two clips were placed on the proximal cystic artery, one near the gallbladder and it was divided. The gallbladder was then peeled off the liver bed using electrocautery. I placed the gallbladder in Endobag and brought out through the upper midline incision where I had to open the gallbladder and remove the thick bile in order to extract the gallbladder that was accomplished. That introducer was replaced. The liver edge was elevated. Subdiaphragmatic and subhepatic spaces were irrigated and irrigation was removed. The gas was allowed to escape and the introducers were removed. The fascia of the umbilical and upper midline introducer sites was closed with interrupted 0 Vicryl and skin of all the incisions was closed with 4-0 Monocryl in either an interrupted or running subcuticular fashion. The skin was cleansed, dried, benzoin placed, Steri-Strips applied after it was anesthetized with 0.5% Marcaine. The estimated blood loss was 5 mL. The patient was transferred to recovery. I attest to the content of the Intraoperative Record and any orders documented therein. Any exception s are noted below.
[2019-08-22] MEDS: OXYCODONE/ACETAMINOPHEN 5mg/325mg TAB PO PRN (23:55)
[2019-08-23] MEDS: metroNIDAZOLE 500 MG/100 ML BAG IV SCH ×2 (02:27→10:14)
[2019-08-23 05:41] LABS: Basophils # (auto) 0.01 K/uL (0-0.2); Basophils % (auto) 0.1 %; Hematocrit (blood only) 40.9 % (42-52); Hemoglobin 14.2 g/dL (14.0-18.0); Immature Granulocytes # (auto) 0.02 K/uL (0.00-0.02); Immature Granulocytes % (auto) 0.2 %; Lymphocytes # (auto) 1.58 K/uL (1.2-3.4); Lymphocytes % (auto) 16.1 %; Mean Corpuscular Hemoglobin 29.4 pg (25-34); Mean Corpuscular Hgb Conc 34.7 g/dL (32-36); Mean Corpuscular Volume 84.7 fL (80-100); Mean Platelet Volume 9.9 fL (7.4-10.4); Monocytes # (auto) 0.75 K/uL (0.11-0.59); Monocytes % (auto) 7.6 %; Neutrophils # (auto) 7.46 K/uL (1.4-6.5); Platelet Count 207 K/uL (130-400); RDW Coefficient of Variation 12.9 % (11.5-14.5); RDW Standard Deviation 39.4 fL (36.4-46.3); Red Blood Count 4.83 M/uL (4.7-6.1); White Blood Count 9.82 K/uL (4.8-10.8)
[2019-08-23 06:21] LABS: BUN Creatinine Ratio 13.9 (10-20); Calcium 8.3 mg/dl (8.5-10.1); Creatinine Clr Calc Pharmacy 160.7 ml/min; Est GFR (African American) 144.1; Est GFR (Non-African American) 124.3
[2019-08-23] MEDS: D5W AND NSS 1,000 ML IV SCH ×3 (07:34→09:27)
[2019-08-23] MEDS: OXYCODONE/ACETAMINOPHEN 5mg/325mg TAB PO PRN (07:42)
[2019-08-23] MEDS: CIPROFLOXACIN 400 MG/200 ML BAG IV SCH (07:43)
--- NOTE | 2019-08-23 08:29 | Anesthesiology Progress Note ---
Date of Service August 23, 2019 Anesthesia Post Procedure Vital Signs Vital Signs: Temp Pulse Pulse Pulse Pulse Resp BP 08/23/19 07:21 36.6 C 52 L 18 08/23/19 04:32 59 L 08/23/19 04:08 36.9 C 53 L 18 08/22/19 23:29 36.4 C L 53 L 19 08/22/19 19:40 37.2 C 67 17 08/22/19 17:52 36.7 C 67 17 08/22/19 17:15 37.3 C 67 16 08/22/19 16:47 37.4 C 63 16 08/22/19 16:30 36.9 C 68 18 08/22/19 16:20 66 16 08/22/19 16:10 62 16 08/22/19 16:00 67 14 08/22/19 15:50 36.8 C 72 14 08/22/19 14:03 37.0 C 65 18 08/22/19 09:00 37.4 C 71 20 08/22/19 08:30 67 19 117/70 BP Pulse Ox 08/23/19 07:21 121/70 94 08/23/19 04:32 08/23/19 04:08 110/61 96 08/22/19 23:29 125/76 96 08/22/19 19:40 130/73 95 08/22/19 17:52 132/77 93 08/22/19 17:15 119/71 95 08/22/19 16:47 121/76 96 08/22/19 16:30 119/78 97 08/22/19 16:20 130/80 98 08/22/19 16:10 122/75 100 08/22/19 16:00 124/76 100 08/22/19 15:50 127/75 98 08/22/19 14:03 134/80 97 08/22/19 09:00 130/76 97 08/22/19 08:30 97 Pain Intensity Abdomen: Pain Intensity: 3 Notes Mental Status: alert / awake / arousable and participated in evaluation Patient Amnestic to Procedure: Yes Nausea / Vomiting: adequately controlled Pain: adequately controlled Airway Patency, RR, SpO2: stable & adequate BP & HR: stable & adequate Hydration State: stable & adequate Anesthetic Complications: no major complications apparent
--- NOTE | 2019-08-23 11:04 | Surgery Progress Note ---
Date of Service August 23, 2019 Assessment & Plan (1) Acute cholecystitis: Postoperative day #1 status post laparoscopic cholecystectomy Doing well Can be discharged to home Explained postoperative activity restrictions Can be seen in the office in 3 weeks for a recheck Subjective Postoperative day 1 status post laparoscopic cholecystectomy Having mild abdominal discomfort Had bowel movement this morning Tolerated diet No flatus or bowel movement as yet Physical Exam Gastrointestinal (Abdomen): Percussion/Palpation: abdomen soft; abdomen not rigid Results & Data Vital Signs (Past 12 Hours) Vital Signs Temp Pulse Resp BP Pulse Ox 08/23/19 10:48 36.6 C 52 L 18 116/64 94 08/23/19 07:21 36.6 C 52 L 18 121/70 94 08/23/19 04:32 59 L 08/23/19 04:08 36.9 C 53 L 18 110/61 96 08/22/19 23:29 36.4 C L 53 L 19 125/76 96
--- NOTE | 2019-08-23 14:02 | Hospitalist Progress Note ---
Date of Service August 23, 2019 Assessment & Plan (1) Acute cholecystitis: (2) Abdominal pain: Present on admission with severe RUQ pain Gallbladder u/s showed cholelithiasis, gallbladder wall edema, and reported positive sonographic Tesfaye sign. KUB showed nonobstructive bowel gas pattern. S/P day#1 laparoscopic Cholecystectomy performed by Dr. Chacorta Matute MD No post op complications Tolerated diet OK from surgical standpoint to discharge home today Follow up with Dr. Matute in 3 weeks Hypokalemia K stable DVT px ambulates CODE STATUS FULL CODE DISPOSITION Follow up with surgery Dr. Matute in 3 weeks Subjective Pt was seen and examined Lying in bed with no distress Pt said that he feels fine He said that pain improves He said that he tolerated his diet He said that he had a BM this morning Denies any chest pain, palpitation, dizziness and SOB Physical Exam Physical Exam: General- No acute distress Head- atraumatic Eyes- PERRL, EOMI, ENT- oropharynx clear Neck- supple, no JVD Lungs- clear to auscultation Heart- regular rhythm; no murmur Abdomen- normal bowel sounds, soft, +tenderness around the incision area Extremities- no calf tenderness Neuro- alert, oriented x 3; PERRL, EOMI; no facial palsy; no dysarthria Skin- warm & dry Results & Data Vital Signs (Past 12 Hours) Vital Signs Temp Pulse Resp BP Pulse Ox 08/23/19 12:02 36.6 C 52 L 18 116/64 94 08/23/19 10:48 36.6 C 52 L 18 116/64 94 08/23/19 07:21 36.6 C 52 L 18 121/70 94 08/23/19 04:32 59 L 08/23/19 04:08 36.9 C 53 L 18 110/61 96
--- NOTE | 2019-08-24 08:39 | Discharge Summary ---
Date of Service August 23, 2019 Admission HPI Per Admitting Provider CHIEF COMPLAINT: Abdominal pain. HISTORY OF PRESENT ILLNESS: This 39-year-old male with no significant past medical history, not on any medications, came in with severe abdominal pain started last night at 10 o'clock after eating a heavy meal. Pain is located in the right upper quadrant pain, very severe in nature. Has some nausea, no vomiting, no diarrhea or constipation. In the ER, imaging studies showed cholecystitis and received antibiotics, fluids and pain medication. Surgery was notified by ER. Currently, pain is under control. Denies any headache, no blurred vision, no sore throat, no earaches, no shortness of breath, no chest pain, no dysphagia, abdominal pain improved. Normal bowel and bladder movements. No swelling in the legs, no rash. Otherwise, active. Admission Exam Per Admitting Provider GENERAL: The patient is of moderate build, not in acute distress. VITAL SIGNS: Temperature 37, pulse 74, respiratory rate 15, blood pressure 122/70, oxygen 96% room air. HEENT: No pallor, no icterus. Pupils equal, round, reactive to light. NECK: Supple. CARDIOVASCULAR: S1, S2, regular rate and rhythm, no murmur, no gallop. RESPIRATORY SYSTEM: Normal AP diameter. No accessory muscle use. No wheezing, no crackles. ABDOMEN: Soft, bowel sounds present. Mild right upper quadrant tenderness present, no guarding, no rigidity. No distention. CENTRAL NERVOUS SYSTEM: Cranial nerves II-XII grossly nonfocal. EXTREMITIES: No edema, no erythema. Principal Diagnosis Acute cholecystitis Discharge Exam General- No acute distress Head- atraumatic Eyes- PERRL, EOMI, ENT- oropharynx clear Neck- supple, no JVD Lungs- clear to auscultation Heart- regular rhythm; no murmur Abdomen- normal bowel sounds, soft, +tenderness around the incision area Extremities- no calf tenderness Neuro- alert, oriented x 3; PERRL, EOMI; no facial palsy; no dysarthria Skin- warm & dry Discharge Data Allergies Allergy/AdvReac Type Severity Reaction Status Date / Time amoxicillin Allergy Rash Verified 08/22/19 14:02 Consultations 08/22/19 05:29 Consult General Surgery Stat 08/22/19 05:35 ED Decision to Admit Stat Procedures Performed Operation Date: 08/22/19 11:55 Actual Procedures p Laparoscopic Cholecystectomy(Not Applicable) - Chacorta Matute MD Ordered Studies 08/22/19 02:25 US gallbladder Urgent XR KUB/Abdomen 1 view CLINICAL HISTORY: epigastric abd pain COMPARISON STUDY: No previous studies for comparison. FINDINGS: There is no pathologic bowel dilatation. There is no conventional radiographic evidence of organomegaly. No urinary tract calculi are visualized. IMPRESSION: Nonobstructive bowel gas pattern. Electronically signed by: Jd Garza M.D. 08/22/2019 6:55 AM Dictated: 08/22/19654 Transcribed: 08/22/19654 BILIARY ULTRASOUND CLINICAL HISTORY: Right upper quadrant abdominal pain COMPARISON STUDY: No previous studies for comparison. FINDINGS: The pancreas appears normal as visualized. The liver appears sonographically normal. There are no focal hepatic masses. There is no ductal dilatation. The common bile duct measures 4 mm. There is a nonshadowing calculus in the region of the gallbladder neck. There is gallbladder wall edema. The technologist reports a positive sonographic Tesfaye sign. The findings are suspicious for acute cholecystitis. There is no evidence of right-sided hydronephrosis. There is borderline increase in right renal cortical echogenicity IMPRESSION: 1. Cholelithiasis, gallbladder wall edema, and reported positive sonographic Tesfaye sign. The findings are suspicious for acute cholecystitis. Please correlate clinically. Electronically signed by: Jd Garza M.D. 08/22/2019 6:43 AM Dictated: 08/22/19640 Transcribed: 08/22/19640 XR chest 1V portable CLINICAL HISTORY: Pain, radiating to the abdomen. COMPARISON STUDY: No previous studies for comparison. FINDINGS: The cardiac and mediastinal contours are normal. There is no evidence of focal pulmonary consolidation. There is no evidence of failure. No pleural effusions are visualized.[There is no free intraperitoneal air. IMPRESSION: No active disease in the chest. Electronically signed by: Jd Garza M.D. 08/22/2019 6:40 AM Dictated: 08/22/19639 Transcribed: 08/22/19639 Hospital Course (1) Acute cholecystitis: (2) Abdominal pain: Present on admission with severe RUQ pain Gallbladder u/s showed cholelithiasis, gallbladder wall edema, and reported positive sonographic Tesfaye sign. KUB showed nonobstructive bowel gas pattern. S/P day#1 laparoscopic Cholecystectomy performed by Dr. Chacorta Matute MD No post op complications Tolerated diet OK from surgical standpoint to discharge home today Follow up with Dr. Matute in 3 weeks Hypokalemia K stable DVT px ambulates CODE STATUS FULL CODE DISPOSITION Follow up with surgery Dr. Matute in 3 weeks Total Time Total Time Spent Total Time Spent (In Minutes): 35 minutes Total Time Includes: Examination of the Patient, Discharge Planning, Medication Reconciliation, Communication With Other Providers and Other Discharge Plan Discharge Items Patient Disposition: Home - Self-Care Reason For Visit: ABDOMINAL PAIN Discharge Diagnosis: Acute cholecystitis Activity: Per Instructions section Non-emergency contact: Surgeon Call non-emergency contact if: your pain is not controlled, your pain is worsening, your pain is concerning for you, you have a fever, your temperature is above 101, your wound has increased redness, your wound has increased drainage and your wound pain has increased Follow-up/Referrals: PCP,NO [Primary Care Provider] - Diet: Regular Addtl Attending Provider Instructions: Post-Surgical ~Discharge Instructions Activity Recommendations: - lifting limitation: (10 pounds for 2 weeks), - exercise/sex/sports limit: (nonstrenuous for 2 weeks), - driving or machine use limit: (none for 1 week), - Shower/bathe limit: (may shower) Diet: - Resume previous diet SPECIAL CARE INSTRUCTIONS: - May shower. Let water run over area and pat dry. - Leave steri strips on for one week. - Call the surgeon's office with any questions or concerns - - (ex. temperature higher than 101 degrees F, excessive bleeding or pain). Please do not drive or operate any machine after taking the oxycodone Please hold next dose of oxycodone if you become drowsy or lethargy. MEDICATIONS: - Resume previous medications unless instructed otherwise by your surgeon. - Ibuprofen 600 mg every 6 hours with food - Percocet 1 every 4 hours, as needed for pain FOLLOW UP VISIT: - We have scheduled a follow-up appointment for you in general surgery office at [facility] on 09/13/2019 at 10:00 am. Please call office number if you need to change appointment or have any questions. Pending Studies at Discharge: Yes (Gallbladder pathology, will be reviewed at follow up visit) Stand-Alone Forms: Call Back Authorization, My [facility], Opioid Pain Management Medications and DC Order Prescriptions: New oxycodone-acetaminophen 5-325 mg tablet 1 tab PO Q4H PRN (Reason: pain) Qty: 10 RF: 0 No Action No Known Home Medications RF: 0 Discharge Orders: Discharge Order (Routine); Ordered 08/23/19 Ordered By: Salvador Dutta/Other Patient Handouts: Cooking Tips Low Fat Admission Data Admit Date/Time: 08/22/19 06:43 Attending Provider: Salvador Cuevas Admit Provider: Hector Mejia Primary Care Provider: PCP,NO Other Providers: Chacorta Matute ; Hector Mejia Other Interventions: Discharge Summary Assessment (RN) Last Done: 08/23/19 14:17 DC Date/Time DO NOT enter until pt leaves facility: 08/23/19 15:06
== END 2019-08-23 15:06 | disposition home or self-care (01) ==
LOC: 3N 01:32 → ED 01:32 → 3N 08:45